=== PATIENT | female | born 1985 | race Caucasian/White ===

== ENCOUNTER → 2016-08-13 | Day surgery (SDC) | payer OTHER ==
[~2016-08-13] VITALS: Ht 162.6 cm; Wt 67.1 kg
[~2016-08-13] MED LIST: DEPO-PROVE150 MG/1 M IM
--- NOTE | 2016-08-19 09:20 | Operative Report ---
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 Pre-Operative Diagnosis: Neck lipoma Post-Operative Diagnosis: Same Estimated Blood Loss: scant Surgeon/Track Laying Equipment Operator: JAZMINE MORAN,JAYANT Gómez Anesthesia: general endotracheal tube Operative/Procedure Note Note: Patient was positioned supine, after successful induction of general anesthesia she was turned prone, this mass was part above the hairline so that was clipped and then the area of the posterior neck was prepped and draped in the usual sterile fashion we aimed a horizontal incision in the middle of this protruding soft mass we injected local anesthetic then made the incision with a 15 blade we deepened it just slightly with the knife started dissecting a large very lobulated unencapsulated fatty mass which did extend deep to the muscle subfascially especially superiorly but it also extended very superficially subcutaneously and we had to make sure that we would take it all out in one piece. At times we used sharp dissection at times cautery once removed measured it was over 8 cm wide. Dissection care was taken to stay in the midline and avoid inadvertent injury to neurovascular structures the resulting space was irrigated checked for hemostasis and then closed back up in layers using interrupted 3-0 Vicryl sutures deep followed by 3-0 Vicryl subdermally followed by a running 5-0 nylon for the skin itself followed by bacitracin Telfa and Tegaderm. EBL minimal lap and sponge counts correct wound expectancy clean IV fluids crystalloid complications none patient tolerated the procedure well was extubated and returned to recovery room in satisfactory condition.
== END ==
LOC: STS 07-23 07:00
DX: D17.0 Benign lipomatous neoplasm of skin and subcutaneous tissue of head, face and neck (principal)
CPT/HCPCS: 81025; 88304; J0131; J1100; J1885; J2250; J2405